=== PATIENT | male | born 1980 | race Caucasian/White ===

== ENCOUNTER 2019-04-06 19:25 | Emergency (ER) | payer MEDICAID ==
--- NOTE | 2019-04-06 19:40 | ERPHSYRPT ---
- History of Present Illness Time Seen by Provider: 04/06/19 19:39 Historian: patient Exam Limitations: no limitations Physician History: 38 y/o white male presents with over 2 month h/o of intermittent bilat testicular and cord pain. pt was given rx of doxycycline 2 months ago for similar sx and told he has epididymitis Timing/Duration: other (chronic recurrent) Quality: aching Pain Radiation: no radiation Severity of Pain-Max: mild Severity of Pain-Current: mild Modifying Factors: Improves With: nothing Associated Symptoms: testicular pain Previous symptoms: same symptoms as today Allergies/Adverse Reactions: No Known Drug Allergies Allergy (Unverified 04/06/19 19:41) Home Medications: Buprenorphine HCl/Naloxone HCl [Suboxone 8 mg-2 mg Tablet Sl] 1 tab PO BID 04/06 [History] - Review of Systems Constitutional: No Symptoms Eyes: No Symptoms Ears, Nose, & Throat: No Symptoms Respiratory: No Symptoms Cardiac: No Symptoms Abdominal/Gastrointestinal: No Symptoms Genitourinary Symptoms: Testicle Pain (bilat including bilat cords) Musculoskeletal: No Symptoms Skin: No Symptoms Neurological: No Symptoms Psychological: No Symptoms Endocrine: No Symptoms Hematologic/Lymphatic: No Symptoms Immunological/Allergic: No Symptoms All Other Systems: Reviewed and Negative - Past Medical History Pertinent Past Medical History: Yes Neurological History: No Pertinent History ENT History: No Pertinent History Cardiac History: No Pertinent History Respiratory History: No Pertinent History Endocrine Medical History: No Pertinent History Musculoskeletal History: No Pertinent History GI Medical History: No Pertinent History History: No Pertinent History Psycho-Social History: No Pertinent History Male Reproductive Disorders: No Pertinent History - Past Surgical History Neuro Surgical History: No Pertinent History Cardiac: No Pertinent History Respiratory: No Pertinent History Gastrointestinal: No Pertinent History Genitourinary: No Pertinent History - Nursing Vital Signs Nursing Vital Signs: Initial Vital Signs Temperature 99.2 F 04/06/19 19:42 Pulse Rate 92 H 04/06/19 19:42 Respiratory Rate 18 04/06/19 19:42 Blood Pressure 148/95 04/06/19 19:42 O2 Sat by Pulse Oximetry 98 04/06/19 19:42 Pain Scale Pain Intensity 6 - Physical Exam General Appearance: no apparent distress, alert, anxiety Eye Exam: PERRL/EOMI, eyes nml inspection Ears, Nose, Throat Exam: normal ENT inspection, moist mucous membranes Neck Exam: normal inspection, non-tender, supple, full range of motion Respiratory Exam: normal breath sounds, lungs clear, airway intact, No respiratory distress Cardiovascular Exam: regular rate/rhythm, normal heart sounds, normal peripheral pulses Gastrointestinal/Abdomen Exam: soft, normal bowel sounds, No tenderness Male Genitalia Exam: normal genitalia, testicular tenderness, No testicular mass Rectal Exam: not done Back Exam: normal inspection, normal range of motion, No CVA tenderness, No vertebral tenderness Extremity Exam: normal inspection, normal range of motion, pelvis stable Neurologic Exam: alert, oriented x 3, cooperative, 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, normal mood/affect, nml cerebellar function, nml station & gait Skin Exam: normal color, warm, dry Lymphatic Exam: No adenopathy SpO2 Interpretation: normal O2 Delivery: Room Air Ordered Tests: Active Orders 24 hr Category Date Time Status UA W/RFX UR CULTURE Stat Lab 04/06/19 20:15 Completed Medication Summary Discontinued Medications Generic Name Dose Route Start Last Admin Trade Name Freq PRN Reason Stop Dose Admin Ciprofloxacin 500 mg 04/06/19 20:20 04/06/19 20:34 Cipro 500 Mg PO 04/06/19 20:21 500 mg STAT ONE Administration Ciprofloxacin Confirm 04/06/19 20:25 Cipro 500 Mg Administered 04/06/19 20:26 Dose 500 mg .ROUTE .STK-MED ONE Prednisone 10 mg 04/06/19 20:21 04/06/19 20:34 Deltasone 10 Mg PO 04/06/19 20:22 10 mg STAT ONE Administration Lab/Rad Data: Laboratory Results 04/06/19 Range/Units 20:15 Urine Color YELLOW (YELLOW) Urine Appearance CLEAR (CLEAR) Urine pH 5.0 (5-6) Ur Specific [place] 1.026 (1.005-1.025) Urine Protein NEGATIVE (Negative) Urine Ketones TRACE (NEGATIVE) Urine Blood NEGATIVE (0-5) Kike/ul Urine Nitrite NEGATIVE (NEGATIVE) Urine Bilirubin NEGATIVE (NEGATIVE) Urine Urobilinogen NEGATIVE (0-1) mg/dL Ur Leukocyte Esterase NEGATIVE (NEGATIVE) Urine WBC (Auto) 0-2 (0-5) /HPF Urine RBC (Auto) NONE (0-2) /HPF U Hyaline Cast (Auto) 0-2 (0-2) /LPF U Epithel Cells (Auto) NONE (FEW) /HPF Urine Bacteria (Auto) RARE (NEGATIVE) /HPF Other Casts (Auto) NEGATIVE (NEGATIVE) /LPF Urine Mucus (Auto) MODERATE (NEGATIVE) /HPF Urine Culture Reflexed NO (NO) Urine Glucose NEGATIVE (NEGATIVE) mg/dL - Progress Progress: unchanged Counseled pt/family regarding: lab results, diagnosis, need for follow-up - Departure Departure Disposition: Home Clinical Impression: Testicular pain, unspecified Condition: Stable Critical Care Time: No Additional Instructions: take meds as prescribed. follow up on Tuesday04/09/19 for testicular ultrasound at scheduled time. follow up with urologist for further management Prescriptions: Ciprofloxacin [Cipro 500 MG] 500 mg PO BID #14 tablet Prednisone 10 mg [Deltasone 10 mg] 10 mg PO TID #12 tablet
[2019-04-06 19:57] VITALS: O2SAT 98
[2019-04-06] MEDS ORDERED: Cipro 500 MG PO ONE (20:20)
[2019-04-06] MEDS ORDERED: DELTASONE 10 MG PO ONE (20:21)
[2019-04-06] MEDS ORDERED: Cipro 500 MG ONE (20:25)
[2019-04-06 20:29] LABS: Appearance CLEAR (CLEAR); Bacteria RARE /HPF (NEGATIVE); Bilirubin NEGATIVE (NEGATIVE); Blood NEGATIVE Ery/ul (0-5); Glucose NEGATIVE (NEGATIVE); Hyaline Casts 0-2 /LPF (0-2); Ketones TRACE (NEGATIVE); Leukocyte Esterase NEGATIVE (NEGATIVE); Mucus MODERATE /HPF (NEGATIVE); Nitrite NEGATIVE (NEGATIVE); Protein,Urine Dip NEGATIVE (Negative); Specific Gravity 1.026 (1.005-1.025); Urobilinogen NEGATIVE mg/dL (0-1); WBC 0-2 /HPF (0-5)
[2019-04-06 21:06] VITALS: BP 135/68; PULSE 90
== END 2019-04-06 21:07 | disposition home or self-care (01) ==
LOC: ED 19:25
DX: N50.819 Testicular pain, unspecified (principal)
CPT/HCPCS: 81001; 99283; A9270-GY

== ENCOUNTER 2019-04-27 11:29 | Emergency (ER) | payer MEDICAID ==
[2019-04-27 11:41] VITALS: BP 147/95; PULSE 95; O2SAT 96
--- NOTE | 2019-04-27 12:17 | ERPHSYRPT ---
- History of Present Illness Time Seen by Provider: 04/27/19 11:40 Source: patient Exam Limitations: clinical condition Patient Subjective Stated Complaint: pt here for testicular pain, was dx epididymitis with 2 weeks ago and finsihed antibotics and states he hurts ago and urnine is dark Triage Nursing Assessment: pt alert, walked in , resp easy, skin w/d/p. moves all ext well, abd soft, having n/v, pt now states that is not new for him Physician History: PATIENT COMPLAINS OF BILATERAL TESTICULAR PAIN X 4-5 DAYS. TREATED FOR ACUTE EPIDIDYMITIS 2 WEEKS AGO WITH ANTIBIOTICS CIPRO 500MG TWICE DAILY FOR 7 DAYS. DENIES URETHRAL DISCHARGE, URINARY SYMPTOMS, URGENCY, DYSURIA, FREQUENCY OR HEMATURIA. DENIES TESTICULAR SWELLING, NAUSEA OR EMESIS. Timing/Duration: day(s) Activites at Onset: none Quality: throbbing Onset Location: scrotal, right testicle, left testicle Pain Radiation: none Severity of Pain-Current: mild Modifying Factors: Improves With: movement Associated Symptoms: denies symptoms Prior abdominal problems: similar symptoms Sexual intercourse history: non-contributory Allergies/Adverse Reactions: No Known Drug Allergies Allergy (Verified 04/27/19 11:41) Home Medications: Buprenorphine HCl/Naloxone HCl [Suboxone 8 mg-2 mg Tablet Sl] 1 tab PO BID 04/06 [History] Hx Tetanus, Diphtheria Vaccination/Date Given: No Hx Influenza Vaccination/Date Given: No Hx Pneumococcal Vaccination/Date Given: No Immunizations Up to Date: Yes - Past Medical History Pertinent Past Medical History: No Neurological History: No Pertinent History ENT History: No Pertinent History Cardiac History: No Pertinent History Respiratory History: No Pertinent History Endocrine Medical History: No Pertinent History Musculoskeletal History: No Pertinent History GI Medical History: No Pertinent History History: No Pertinent History Psycho-Social History: No Pertinent History Male Reproductive Disorders: No Pertinent History - Past Surgical History Past Surgical History: Yes Neuro Surgical History: No Pertinent History Cardiac: No Pertinent History Respiratory: No Pertinent History Gastrointestinal: No Pertinent History Genitourinary: No Pertinent History Musculoskeletal: Orthopedic Surgery Other Surgical History: winston elbows - Social History Smoking Status: Former smoker Exposure to second hand smoke: No Drug Use: marijuana Patient Lives Alone: No - Review of Systems Constitutional: No Symptoms Respiratory: No Symptoms Cardiac: No Symptoms Abdominal/Gastrointestinal: No Symptoms Genitourinary Symptoms: Testicle Pain Musculoskeletal: No Symptoms - Nursing Vital Signs Nursing Vital Signs: Initial Vital Signs Temperature 98.6 F 04/27/19 11:34 Pulse Rate 95 H 04/27/19 11:34 Respiratory Rate 16 04/27/19 11:34 Blood Pressure 147/95 04/27/19 11:34 O2 Sat by Pulse Oximetry 96 04/27/19 11:34 Pain Scale Pain Intensity 3 - Physical Exam General Appearance: no apparent distress Respiratory Exam: normal breath sounds, lungs clear Cardiovascular Exam: regular rate/rhythm, normal heart sounds Gastrointestinal/Abdomen Exam: soft, normal bowel 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 (NONTENDER) Male Genital Exam: normal genitalia, epididymal tenderness (BILATERAL ) Back Exam: normal inspection, normal range of motion (NO CVA TENDERNESS) Extremity Exam: normal inspection, calf tenderness Neurologic Exam: alert, oriented x 3, cooperative, 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 SpO2: 96 - Radiology Ultrasound Exam Scrotal Ultrasound: discussed w/radiologist (RIGHT TESTICLE MEASURES 5.4 X 2.5 X 2.6, LEFT TESTICLE 5.1 X 2.9 X 2.7 CM, LEFT AND RIGHT EPIDIDYMIS DEMONSTRATES STABLE 7 MM CYSTS, STABLE MINIMAL BILATERAL HYDROCELES) Ordered Tests: Active Orders 24 hr Category Date Time Status TESTICLE [US] Stat Exams 04/27/19 12:41 Completed UA W/RFX UR CULTURE Stat Lab 04/27/19 13:00 Completed Urine Triage Profile Stat Lab 04/27/19 13:00 Completed Medication Summary Discontinued Medications Generic Name Dose Route Start Last Admin Trade Name Rickeyq PRN Reason Stop Dose Admin Ceftriaxone Sodium 500 mg 04/27/19 13:47 04/27/19 13:53 Rocephin 500 Mg Inj IM 04/27/19 13:48 500 mg STAT ONE Administration Ceftriaxone Sodium Confirm 04/27/19 13:50 Rocephin 500 Mg Inj Administered 04/27/19 13:51 Dose 500 mg .ROUTE .STK-MED ONE Lab/Rad Data: Laboratory Results 04/27/19 04/27/19 Range/Units 13:00 13:00 Urine Color YELLOW (YELLOW) Urine Appearance CLEAR (CLEAR) Urine pH 5.0 (5-6) Ur Specific [place] 1.032 (1.005-1.025) Urine Protein NEGATIVE (Negative) Urine Ketones NEGATIVE (NEGATIVE) Urine Blood NEGATIVE (0-5) Kike/ul Urine Nitrite NEGATIVE (NEGATIVE) Urine Bilirubin MODERATE (NEGATIVE) Urine Urobilinogen 2 (0-1) mg/dL Ur Leukocyte Esterase NEGATIVE (NEGATIVE) Urine WBC (Auto) 0-2 (0-5) /HPF Urine RBC (Auto) NONE (0-2) /HPF U Epithel Cells (Auto) NONE (FEW) /HPF Urine Bacteria (Auto) NONE (NEGATIVE) /HPF Urine Mucus (Auto) SLIGHT (NEGATIVE) /HPF Urine Culture Reflexed NO (NO) Urine Glucose NEGATIVE (NEGATIVE) mg/dL Urine Opiates Level NEGATIVE (NEGATIVE) Ur Methadone NEGATIVE (NEGATIVE) Urine Barbiturates NEGATIVE (NEGATIVE) Ur Phencyclidine (PCP) NEGATIVE (NEGATIVE) Urine Amphetamine NEGATIVE (NEGATIVE) U Benzodiazepine Level NEGATIVE (NEGATIVE) Urine Cocaine NEGATIVE (NEGATIVE) Urine Marijuana (THC) POSITIVE (NEGATIVE) - Progress Progress Note: 04/27/19 12:18 ROCEPHIN 500MG IM Counseled pt/family regarding: lab results, diagnosis, need for follow-up - Departure Departure Disposition: Home Clinical Impression: BILATERAL TESTICULAR HYDROCELS Condition: Critical Care Time: No Referrals: DOCTOR,NO FAMILY [Primary Care Provider] - Additional Instructions: FOLLOWUP WITH A UROLOGIST DR HERRING , CALL OFFICE TODAY TO SCHEDULE APPOINTMENT. ANTIBIOTIC DOXYCYCLINE 100MG TWICE DAILY FOR 10 DAYS. TORADOL 10MG EVERY 6 HOURS FOR PAIN. OBTAIN A PHYSICIAN PHYSICIAN. Prescriptions: Ketorolac Tromethamine [Toradol] 10 mg PO Q6HPRN PRN #20 tablet PRN Reason: Pain Doxycycline Hyclate 100 mg [Vibramycin 100 MG] 100 mg PO BID #20 tab
--- NOTE | 2019-04-27 13:00 | XRAY ---
Indication: Bilateral testicle pain. Two-dimensional testicular sonogram performed. Comparison: April 09, 2019. Again both testicles homogeneous in echogenicity with normal color Doppler perfusion. Right testicle measures 5.4 x 2.5 x 2.6 cm and the left measures 5.1 x 2.9 x 2.7 cm. Left and right epididymis demonstrates stable 7 mm cysts. Stable minimal bilateral hydroceles. Again no suspicious extratesticular mass. Impression: Stable tiny bilateral epididymal cysts. No new or acute findings.
[2019-04-27 13:05] LABS: Appearance CLEAR (CLEAR); Bilirubin MODERATE (NEGATIVE); Blood NEGATIVE Ery/ul (0-5); Glucose NEGATIVE (NEGATIVE); Ketones NEGATIVE (NEGATIVE); Leukocyte Esterase NEGATIVE (NEGATIVE); Mucus SLIGHT /HPF (NEGATIVE); Nitrite NEGATIVE (NEGATIVE); Protein,Urine Dip NEGATIVE (Negative); Specific Gravity 1.032 (1.005-1.025); Urobilinogen 2 mg/dL (0-1); WBC 0-2 /HPF (0-5)
[2019-04-27 13:30] LABS: Amphetamine,Urine NEGATIVE (NEGATIVE); Barbiturate,Urine NEGATIVE (NEGATIVE); Benzodiazepine,Urine NEGATIVE (NEGATIVE); Cocaine,Urine NEGATIVE (NEGATIVE); Methadone,Urine NEGATIVE (NEGATIVE); Opiate,Urine NEGATIVE (NEGATIVE); PCP,Urine NEGATIVE (NEGATIVE); THC,Urine POSITIVE (NEGATIVE)
[2019-04-27] MEDS ORDERED: Rocephin 500 MG INJ IM ONE (13:47)
[2019-04-27] MEDS ORDERED: Rocephin 500 MG INJ ONE (13:50)
[2019-04-27 14:40] LABS: CHLAMYDIA URINE NEGATIVE (NEGATIVE); GC URINE NEGATIVE (NEGATIVE)
== END 2019-04-27 14:26 | disposition home or self-care (01) ==
LOC: ED 11:29
DX: N43.2 Other hydrocele (principal); N50.812 Left testicular pain; N50.811 Right testicular pain; N45.1 Epididymitis
CPT/HCPCS: 76870; 80307; 81001; 87491; 87591; 96372; 99283; 99284; J0696